=== PATIENT | male | born 1980 | race Caucasian/White ===

== ENCOUNTER 2020-03-16 10:29 | Outpatient (CLI) | payer BC, SELFPAY | END 2020-03-16 10:30 | disposition home or self-care (01) | LOC: RADSHAW 14:35 | PROVIDERS: PCP Family Medicine; Referring Provider Family Medicine; Visit Provider Specialist | DX: R51 Headache (principal); F17.210 Nicotine dependence, cigarettes, uncomplicated | CPT/HCPCS: 99204 ==

== ENCOUNTER 2020-04-07 09:29 | Outpatient (CLI) | payer BC, SELFPAY ==
--- NOTE | 2020-04-07 09:30 | MR_ITS ---
WS: [id number] MRI BRAIN WITHOUT CONTRAST HISTORY: ATYPICAL FACIAL PAIN COMPARISON: None available. TECHNIQUE: Diffusion imaging, multiplanar T1, T2 and FLAIR imaging obtained. No evidence for acute infarct or hemorrhage. Kinsey-white matter differentiation is normal. No signal a bnormalities are noted along the 5th cranial nerve or along the 7th and 8th cranial nerve pathway. No abnormality at the internal auditory canals. No remote or acute infarcts are volume loss. Ventricles and extra-axial spaces are normal. No inferior displacement of cerebellar tonsils. The sella turcica and pituitary gland are unremarkabl e. Posterior fossa is also unremarkable. Dural venous sinuses and [place] of [place] demonstrate no abnormality on this unenhanced studies. Paranasal sinuses: Clear. Mastoid air cells: Normal. Calvarium and scalp: Intact. MR/MR head wo con* [id number] IMPRESSION: 1. Unremarkable noncontrast MRI brain. 2. No significant abnormalities along the 5th, 7th or 8th cranial nerve pathwa ys.
== END 2020-04-07 09:30 | disposition home or self-care (01) ==
LOC: RADSHAW 09:32
PROVIDERS: PCP Family Medicine; Visit Provider Specialist
DX: G50.1 Atypical facial pain (principal)
CPT/HCPCS: 70551

== ENCOUNTER → 2020-04-28 14:26 | Outpatient (BNVA) | payer BC, SELFPAY | PROVIDERS: PCP Family Medicine; Visit Provider Specialist | DX: G44.001 Cluster headache syndrome, unspecified, intractable (principal) | CPT/HCPCS: G0463 ==

== ENCOUNTER → 2020-04-29 08:15 | Outpatient (BNVA) | payer BC, SELFPAY | PROVIDERS: PCP Family Medicine; Visit Provider Specialist | DX: G44.001 Cluster headache syndrome, unspecified, intractable (principal) | CPT/HCPCS: 99213 ==

== ENCOUNTER → 2020-06-23 13:24 | Outpatient (BNVA) | payer BC, SELFPAY | PROVIDERS: PCP Family Medicine; Visit Provider Specialist | DX: G44.001 Cluster headache syndrome, unspecified, intractable (principal) | CPT/HCPCS: G0463 ==

== ENCOUNTER → 2020-09-23 13:39 | Outpatient (BNVA) | payer BC, SELFPAY | PROVIDERS: PCP Family Medicine; Visit Provider Specialist | DX: M54.2 Cervicalgia (principal); F40.240 Claustrophobia; G44.001 Cluster headache syndrome, unspecified, intractable; F17.210 Nicotine dependence, cigarettes, uncomplicated | CPT/HCPCS: 99214 ==

== ENCOUNTER 2020-10-12 11:21 | Outpatient (CLI) | payer BC, SELFPAY ==
--- NOTE | 2020-10-12 11:45 | MR_ITS ---
WS: [id number] MRI CERVICAL SPINE HISTORY: M54.2 - Cervicalgia COMPARISON: None available. Normal cervical alignment with no compression fracture or significant disc space narrowing. No marrow edema or fractures. Small hypertrophic endplate osteophytes and mild disc bulging at severa l levels. Craniocervical junction, C1 and C2 relationship, odontoid process and soft tissues are normal. C2-C3: Normal. C3-C4: LEFT foraminal osteophytes with only significant encroachment. No significant stenosis. C4-C5: Mild osteophytic ridging and foraminal hypertrophic osteophytes. Minimal narrowing of the fora men. C5-C6: Mild annular disc bulging and bilateral foraminal osteophytes. Mild bilateral foraminal stenos is and facet arthritis. C6-C7: Moderate annular disc bulging and osteophytic ridging. Disc osteophytes extend into the forame n bilaterally. Moderate bilateral foraminal stenosis with mild facet arthritis. C7-T1: Normal. Paraspinal soft tissue are normal. MR/MR cervical spin wo con* [id number] IMPRESSION: 1. No acute fractures or significant central stenosis. 2. Moderate bilateral foraminal stenosis at C6-7 due to disc osteophyte diseas e. 3. Mild bilateral foraminal stenosis at C4-5 and C5-C6 due to osteophytes.
== END 2020-10-12 11:22 | disposition home or self-care (01) ==
LOC: RADSHAW 11:23
PROVIDERS: PCP Family Medicine; Visit Provider Specialist
DX: M54.2 Cervicalgia (principal); M48.02 Spinal stenosis, cervical region; M25.78 Osteophyte, vertebrae
CPT/HCPCS: 72141